=== PATIENT | female | born 1960 | race Caucasian/White ===

== ENCOUNTER 2020-02-04 22:04 | Emergency (ER) | payer OTHER ==
[~2020-02-04] VITALS: Ht 170.2 cm; Wt 52.6 kg
--- NOTE | 2020-02-04 22:17 | NUR ---
pt bibself ambulatory to er bed 3 c/o right index finger avulsion s/p cleaning blade while washing dishes. pt aox4 rr even and unlabored. no sob noted. no nvd at this time. pt TDAP utd. [facility] wil[facility] at bedside for eval.
--- NOTE | 2020-02-04 22:34 | NUR ---
EMT AT BEDSIDE FOR WOUND CARE
--- NOTE | 2020-02-04 22:57 | NUR ---
pt cleared for discharge per [facility] wil[facility]. pt received discharge instructions. pt verbalized understanding. pt ambulatory with steady gait.
[2020-02-04 22:58] VITALS: BP 133/77
== END 2020-02-04 22:59 | disposition home or self-care (01) ==
LOC: ER 22:06
DX: S61.210A Laceration without foreign body of right index finger without damage to nail, initial encounter (principal); W26.8XXA Contact with other sharp object(s), not elsewhere classified, initial encounter; Y93.E8 Activity, other personal hygiene; Y92.098 Other place in other non-institutional residence as the place of occurrence of the external cause; Y99.8 Other external cause status
CPT/HCPCS: 12001; 99282; A6403